=== PATIENT | female | born 1980 | race Caucasian/White ===

== ENCOUNTER → 2021-03-24 10:15 | Outpatient (CLI) | payer OTHER, SELFPAY ==
--- NOTE | ~2021-03-24 | MR_ITS ---
EXAMINATION: MR lumbar spine wo con DATE: 03/24/2021 10:54 INDICATION: Lumbar radiculopathy with low back pain and pain and numbness in the right lower limb. TECHNIQUE: Magnetic resonance imaging (MRI) of the lumbar spine was performed without intravenous con trast. Sequences included sagittal T2-weighted FSE, sagittal T2-weighted FS FSE, sagittal T1-weighted FSE, and axial T2-weighted FSE. COMPARISON: None FINDINGS: 3 mm retrolisthesis L5 on S1. Vertebral body heights are normal. Normal marrow signal. Disc heights are normal. Mild disc desiccation at L2-L3 through L5-S1. Annular fissure and disc extrusion at L5-S1 . The conus medullaris terminates at T12-L1. There is normal signal in the caudal spinal cord. Parave rtebral soft tissues are unremarkable. The following disc levels are specifically discussed: T12-L1: Disc is minimally bulging. There is mild bilateral facet joint osteoarthritis. There is no ne ural foraminal stenosis. There is no central canal stenosis. L1-L2: Disc is minimally bulging. There is mild bilateral facet joint osteoarthritis. There is no isabell ral foraminal stenosis. There is no central canal stenosis. L2-L3: Disc is mildly bulging with right foraminal zone annular fissure and disc protrusion. There is mild to moderate bilateral facet joint osteoarthritis. There is mild right neural foraminal stenosis . There is mild central canal stenosis. L3-L4: Disc is bulging. There is moderate bilateral facet joint osteoarthritis. There is moderate deangelo ateral neural foraminal stenosis. There is mild central canal stenosis. There is also narrowing of th e lateral recesses exerting some mass effect upon the traversing L4 nerve roots, right greater than l eft. L4-L5: Disc is bulging. There is severe left and moderate to severe right facet joint osteoarthritis. There is moderate left and mild to moderate right neural foraminal stenosis. There is moderate centr al canal stenosis along with narrowing of the lateral recesses exerting more significant mass effect upon the traversing L5 nerve roots, right greater than left. L5-S1: Disc is mildly bulging with annular fissure and small central disc extrusion with disc materia l extending couple millimeters cephalad to the level of the inferior endplate of L5. Macro flavum The re is moderate to severe bilateral facet joint osteoarthritis. There is altered left and mild to mode rate right neural foraminal stenosis. There is mild central canal stenosis along with mild narrowing of the left and right lateral recesses with mild mass effect upon the traversing bilateral S1 nerve r oots. IMPRESSION: 1. Multilevel mild lumbar degenerative disc disease with more prominent multilevel bilateral moderate to severe lumbar facet osteoarthritis. Reviewed, dictated and finalized at [facility]. ICAL MANAGER IMPRESSION: 1. Multilevel mild lumbar degenerative disc disease with more prominent multile roge bilateral moderate to severe lumbar facet osteoarthritis.
== END ==
PROVIDERS: PCP Physician Assistant; Visit Provider Physician Assistant
DX: M47.25 Other spondylosis with radiculopathy, thoracolumbar region (principal); M48.05 Spinal stenosis, thoracolumbar region; M47.27 Other spondylosis with radiculopathy, lumbosacral region; M48.07 Spinal stenosis, lumbosacral region
CPT/HCPCS: 72148

== ENCOUNTER → 2022-06-25 15:43 | Outpatient (CLI) | payer OTHER, SELFPAY ==
--- NOTE | ~2022-06-25 | MR_ITS ---
EXAMINATION: MR lumbar spine wo con DATE: 06/25/2022 16:20 INDICATION: Prolapsed lumbar intervertebral disc TECHNIQUE: Magnetic resonance imaging (MRI) of the lumbar spine was performed without intravenous con trast. Sequences included sagittal T2-weighted FSE, sagittal T2-weighted FS FSE, sagittal T1-weighted FSE, and axial T2-weighted FSE. COMPARISON: 03/24/2021 FINDINGS: 9 degrees lumbar dextrocurvature. 2 mm retrolisthesis L3 on L4. Unchanged 3 mm retrolisthesis L5 on S 1. Vertebral body heights are normal. Normal marrow signal. This desiccation and mild disc height lo ss at L2-L3 through L5-S1. The conus medullaris terminates at T12-L1. There is normal signal in the c audal spinal cord. Paravertebral soft tissues are unremarkable. Fibroid uterus. The following disc le vels are specifically discussed: T12-L1: Disc is mildly bulging. There is mild bilateral facet joint osteoarthritis. There is no neura l foraminal stenosis. There is minimal central canal stenosis. L1-L2: Disc is mildly bulging. There is mild left and mild to moderate right facet joint osteoarthrit is. There is minimal bilateral neural foraminal stenosis. There is minimal central canal stenosis. L2-L3: Disc is bulging with superimposed right foraminal zone annular fissure and disc protrusion. Th ere is mild to moderate left and moderate right facet joint osteoarthritis. There is mild bilateral n eural foraminal stenosis. There is mild central canal stenosis. L3-L4: Disc is bulging. There is moderate bilateral facet joint osteoarthritis. There is mild to mode rate bilateral neural foraminal stenosis. There is mild central canal stenosis along with mild narrow ing of the left and right lateral recesses. L4-L5: Disc is bulging. There is severe bilateral facet joint osteoarthritis. There is hypertrophy of the ligamentum flavum. There is fluid by approximately 2 mm the articular surfaces of th e facet joints suggesting potential for an additional 2 mm of additional anterolisthesis of L4 on L5. There is mild to moderate bilateral neural foraminal stenosis. There is moderate central canal steno sis. L5-S1: Disc is mildly bulging with superimposed annular fissure and small central disc extrusion with disc material extending up to 3 mm caudal to the level of the superior endplate of S1. There is mode rate bilateral facet joint osteoarthritis. There is mild left and mild to moderate right neural donald inal stenosis. There is mild central canal stenosis. IMPRESSION: 1. Interval progression of still mild lumbar spondylosis most notable for moderate central canal sten osis at L4-L5 where there is 2 mm anterolisthesis of L4 on L5 and suggestion of potential for an adam tional 2 mm anterolisthesis based upon the cephalad position of the articular surfaces at the facet j oints. This could be further evaluated with flexion-extension lateral radiographs as clinically indic ated. Reviewed, dictated and finalized at location A. IMPRESSION: 1. Interval progression of still mild lumbar spondylosis most notable for moder ate central canal stenosis at L4-L5 where there is 2 mm anterolisthesis of L4 o n L5 and suggestion of potential for an additional 2 mm anterolisthesis based u michael the cephalad position of the articular surfaces at the facet joints. This c ould be further evaluated with flexion-extension lateral radiographs as clinica lly indicated.
== END ==
PROVIDERS: PCP Neurological Surgery; Visit Provider Physician Assistant
DX: M51.26 Other intervertebral disc displacement, lumbar region (principal); M43.06 Spondylolysis, lumbar region
CPT/HCPCS: 72148

== ENCOUNTER → 2022-07-10 09:24 | Outpatient (CLI) | payer OTHER, SELFPAY ==
--- NOTE | ~2022-07-10 | CT_ITS ---
EXAMINATION: CT lumbar spine wo con DATE: 07/10/2022 09:49 INDICATION: Lumbar stenosis with neurogenic claudication. TECHNIQUE: Computed tomography (CT) of the lumbar spine was performed without intravenous contrast. A utomated exposure control and iterative reconstruction technique were employed. The dose-length produ ct was 924.09 mGy-cm. COMPARISON: Lumbar spine MRI 06/25/2022 FINDINGS: There is 5 degrees dextrocurvature of lumbar spine. Vertebral body heights are normal. Inte rvertebral disc heights are normal. The following disc levels are specifically discussed: L1-L2: The disc does not extend beyond the endplate margin. There is mild bilateral facet joint osteo arthritis. There is no neural foraminal stenosis. There is no central canal stenosis. L2-L3: The disc is bulging. There is mild bilateral facet joint osteoarthritis. There is mild bilater al neural foraminal stenosis. There is mild central canal stenosis. L3-L4: The disc is bulging. There is mild bilateral facet joint osteoarthritis. There is mild bilater al neural foraminal stenosis. There is mild central canal stenosis. L4-L5: The disc is bulging. There is severe bilateral facet joint osteoarthritis. There is mild bilat eral neural foraminal stenosis. There is mild central canal stenosis. L5-S1: The disc is bulging. There is mild bilateral facet joint osteoarthritis. There is no neural fo raminal stenosis. There is mild central canal stenosis. IMPRESSION: 1. Mild lumbar spondylosis, stable from 06/25/2022. Reviewed, dictated and finalized at location A.
--- NOTE | ~2022-07-10 | XR_ITS ---
EXAMINATION: XR lumbar spine min 4V DATE: 07/10/2022 09:41 INDICATION: Low back pain TECHNIQUE: Anteroposterior and lateral in neutral, flexion and extension views of the lumbar spine, a nd cone-down lateral view of the lumbosacral junction were obtained. COMPARISON: MRI, 06/25/2022 FINDINGS: There are 3 mm of anterolisthesis of L4 on L5. No hypermobility is identified with flexion or extension. The vertebral body heights are normal. There is no fracture. Small degenerative osteoph ytes project from the anterior endplates of multiple vertebral bodies. IMPRESSION: 1. Mild lumbar spondylosis without evidence of acute abnormality or hypermobility at L4-5. Reviewed, dictated and finalized at location B. IMPRESSION: 1. Mild lumbar spondylosis without evidence of acute abnormality or hypermobili ty at L4-5.
== END ==
PROVIDERS: PCP Physician Assistant; Visit Provider Neurological Surgery
DX: M48.062 Spinal stenosis, lumbar region with neurogenic claudication (principal); M43.06 Spondylolysis, lumbar region
CPT/HCPCS: 72110; 72131

== ENCOUNTER 2023-03-30 16:18 | Outpatient (CLI) | payer OTHER, SELFPAY ==
--- NOTE | ~2023-03-30 | XR_ITS ---
XR lumbar spine 2-3V 03/30/2023 16:50 Indication: Arthrodesis. Surgery follow-up. Procedure: 3 Views lumbar spine Comparison: 07/10/2022 Findings: There are surgical changes consistent with posterior fusion at L4-5. There is a prosthetic disc device at L4-5. Hardware intact. Mild disc narrowing at L5-S1. No acute fracture or traumatic ma lalignment. Vertebral body heights are maintained. Pedicles intact. Sacral foramen are symmetric. Impression: 1: Posterior fusion at L4-5 with prosthetic disc device. Hardware in expected position. 2: Mild lumbar spondylosis. Reviewed, dictated and finalized at location B. F DATA OFFICER Impression: 1: Posterior fusion at L4-5 with prosthetic disc device. Hardware in expected p osition. 2: Mild lumbar spondylosis.
== END 2023-03-30 16:19 | disposition home or self-care (01) ==
PROVIDERS: PCP Physician Assistant; Visit Provider Neurological Surgery
DX: Z98.1 Arthrodesis status (principal); M47.896 Other spondylosis, lumbar region
CPT/HCPCS: 72100

== ENCOUNTER 2023-12-02 17:09 | Emergency (ER) | payer OTHER, SELFPAY ==
--- NOTE | ~2023-12-02 | XR_ITS ---
EXAMINATION: XR toe 5th LT min 2V DATE: 12/02/2023 17:40 INDICATION: Left fifth toe injury and pain and swelling. TECHNIQUE: 4 views of left fifth toe were obtained. COMPARISON: None. FINDINGS: There is a transverse fracture of neck of fifth proximal phalanx. The distal fracture fragm ent demonstrates 13 degrees lateral angulation. Joint spaces are normal. IMPRESSION: 1. Transverse fracture of neck of fifth proximal phalanx. Reviewed, dictated and finalized at location A.
--- NOTE | 2023-12-02 17:25 | ED.LOWEXIN ---
HPI - Extremity Injury (Lower) General Chief Complaint: Extremity Injury, Lower Stated Complaint: L FOOT/TOE INJURY Time Seen by Provider: 12/02/23 17:25 Source: patient Mode of arrival: ambulatory Limitations: no limitations History of Present Illness HPI Narrative: 43-year-old female presents with complaint of pain and swelling to left 5th toe. 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 Patient states they were barefooted due to being on wrestling mass. States she felt pop to left 5th toe. All systems reviewed and negative except as noted above. Related Data Home Medications Medication Instructions Recorded Confirmed No Home Medications 04/01/23 12/02/23 Allergies Allergy/AdvReac Type Severity Reaction Status Date / Time amoxicillin Allergy Unknown Unknown Verified 12/02/23 17:32 cephalexin Allergy Unknown Unknown Verified 12/02/23 17:32 doxycycline Allergy Unknown Unknown Verified 12/02/23 17:32 Sulfa (Sulfonamide Allergy Unknown Unknown Verified 12/02/23 17:32 Antibiotics) Review of Systems Review of Systems: CONSTITUTIONAL: Denies fever, chills, or sweats. EYES: Denies visual changes, redness, or discharge. ENT: Denies rhinorrhea, congestion, sore throat, or otalgia. CARDIOVASCULAR: Denies chest pain, palpitations, or edema. RESPIRATORY: Denies cough or dyspnea. GASTROINTESTINAL: Denies abdominal pain, nausea, vomiting, or diarrhea. GENITOURINARY: Denies dysuria or hematuria. SKIN: Denies rash or itching. MUSCULOSKELETAL: Reports pain and swelling to left 5th toe. NEUROLOGIC: Denies headache, numbness, or weakness. PSYCHIATRIC: Denies anxiety or depression. All other systems reviewed are negative, except as documented in HPI. [facility] Past Medical History Medical History Anxiety Depression Surgical History Surgical History No history of previous surgery Family History Family History Other Diabetes mellitus Family history of malignant neoplasm Social History Social History Smoking status: Never smoker Alcohol intake: current Substance use: never Substance use type: does not use Do You Feel Safe in your Home?: Yes Lack of Transportation: No Lack of Food: Never True Current Housing: I Have Housing Concerned About Future Housing: No Difficulty Paying Gas/Electric Bills: No Difficulty Paying for Meds: No Currently Unemployed: No Education: Master's Degree or Higher Difficulty w/ Childcare or Family Care: No Comments At time of signature, agree with nursing past medical, surgical, social and family history. There is no relevant family history pertinent to the presenting complaint. Exam Narrative: GENERAL: This is a well-nourished, well-developed patient, in no apparent distress. HEAD: normocephalic, atraumatic. EYES: PERRL. Sclera clear/white. Vision is grossly intact. EARS: External ears normal NOSE: External nose normal NECK: Neck supple, non-tender without lymphadenopathy, masses or thyromegaly. CARDIOVASCULAR: Regular rate and rhythm without murmurs, gallops, or rubs. RESPIRATORY: Clear to auscultation. Breath sounds equal bilaterally. No wheezes, rales, or rhonchi. SKIN: warm, Dry, intact with no suspicious lesions or rash, good texture and turgor. NEURO: awake, alert, and oriented to person, place and time. There were no obvious focal neurologic abnormalities. EXTREMITIES: Tenderness to left 5th toe. Mild swelling. No deformity. Distal neurovascularly intact. Course Course Level of Care: Express Care Visit Vital Signs Vital signs: Vital Signs Temperature 37.1 C 12/02/23 17:30 Pulse Rate 89 12/02/23 17:30 Re
[2023-12-02 17:30] VITALS: BP 148/104; PULSE 89; RESP 16; TEMP 37.1; O2SAT 98
== END 2023-12-02 18:07 | disposition home or self-care (01) ==
PROVIDERS: Emergency Provider Nurse Practitioner Family; PCP Physician Assistant
DX: S92.512A Displaced fracture of proximal phalanx of left lesser toe(s), initial encounter for closed fracture (principal); W51.XXXA Accidental striking against or bumped into by another person, initial encounter
CPT/HCPCS: 73660; 99213; G0463

== ENCOUNTER 2024-07-18 10:13 | Outpatient (CLI) | payer OTHER, SELFPAY | END 2024-07-18 10:14 | disposition home or self-care (01) | PROVIDERS: PCP Physician Assistant; Visit Provider Physician Assistant | DX: M25.562 Pain in left knee (principal) | CPT/HCPCS: 73562 ==